=== PATIENT | male | born 1990 ===

== ENCOUNTER 2024-06-20 12:15 | Outpatient (REF) | payer MEDICAID, SELFPAY ==
--- OUTSIDE RECORDS SUMMARY | 2024-06-21 16:05 | XMS_ITS | Encounter Summary ---
Author Organization [employer] Address [address] [place] [address] 7 [place] [address] Care Team Providers Care Sales Contractor Name Role Phone Unavailable Primary Care Provider Unavailabl e Encounter Details Date Type Department Care Team (Late st Contact Info) Description 06/20/2024 6:00 PM EST Office Visit [facility] [address] [place] [address] [phone] Jose Flores MD [address] [place], [place] [phone] Chlamydia contact (Primary Dx); Dysuria Social History Tobacco Use Types Packs/Day Years Used Date Smoking Tobacco: Former Cigarettes Passive Smoke Exposure: Never Smokeless Tobacco: Never Tobacco Cessation:Counseling Given: Not Answered Sex and Gender Information Value Date Recorded Sex Assigned at Male 01/31/2023 1:44 PM EDT Legal Sex Male 2:37 PM EST Gender Identity Male 01/31/2023 1:44 PM EDT Sexual Orientation Straight 01/31/2023 1: 44 PM EDT documented as of this encounter Last Filed Vital Signs Vital Sign Reading Time Taken Comments Blood Pressure 125/71 06/20/2024 5:46 PM EST Pulse 54 06/20/2024 5:46 PM EST Temperature 36.2 ??C (97.2 ??F) 06/20/2024 5:46 PM ES T Respiratory Rate 20 06/20/2024 5:46 PM EST Oxygen Saturation 98% 06/20/2024 5:46 PM EST Inhaled Oxygen Concentration - - Weight 80.6 kg (177 lb 12.8 oz) 06/20/2024 5:46 PM EST Height 174 cm (5' 8.5 ) 06/20/2024 5:46 PM EST Body Mass Index 26.64 06/20/2024 5:46 PM EST documented in this encounter Progress Notes * Jose Flores MD - 06/20/2024 6:00 PM EST Subjective Patient ID: Anselmo Massey is a 33 y.o. male. 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 Anselmo had had 1 month h/o mild burning on urination, no urethral discharge. No fever, testicular pain or swelling. Lives with girlfriend. 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 Quit smoking 3 years ago. The following portions of the chart were reviewed this encounter and updated as appropriate: Tobacco Allergies Meds Problems Med Hx Surg Hx Fam Hx Review of Systems Constitutional: Negative for fever. Respiratory: Negative for shortness of breath. Cardiovascular: Negative for chest pain. Gastrointestinal: Negative for abdominal pain. Genitourinary: Positive for dysuria. Negative for penile discharge, scrotal swelling and testicularpain. Skin: Negative for rash. Neurological: Negative for headaches. Objective Physical Exam Vitals and nursing note reviewed. Constitutional: Appearance: Normal appearance. HENT: Head: Normocephalic and atraumatic. Nose: Nose normal. Eyes: Conjunctiva/sclera: Conjunctivae normal. Pupils: Pupils are equal, round, and reactive to light. Pulmonary: Effort: Pulmonary effort is normal. Skin: General: Skin is warm and dry. Neurological: Mental Status: He is alert. Gait: Gait is intact. Psychiatric: Mood and Affect: Mood and affect normal. Behavior: Behavior normal. Procedures Assessment/Plan Diagnoses and all orders for this visit: Chlamydia contact Urine CT/GC and trichomonas tests pending. Prescribed doxycycline. STI blood tests ordered. Will call pt with results. Advised to avoid sexual activity until finishing doxycycline. Repeat urine GC/CT test ordered to be done in 3 months to test for reinfection. Rtc if not improving. [facility] PCP mi't requested. - Trichomonas vaginalis RNA, Qualitative, TMA, Males - Chlamydia/N. Gonorrhoeae RNA, TMA, Urogenitial; Future - Hepatitis B Core Antibody, Total; Future - Hepatitis B Surface Antibody, Qualitative; Future - Hepatitis B surface antigen, EIA; Future - Hepatitis C Antibody with Reflex to HCV, RNA, Quantitative, Real-Time PCR; Future - HIV-1/2 Antigen and Antibodies, Fourth Generation, with Reflexes; Future - RPR (Monitor) with Reflex to Titer; Future - Chlamydia/N. Gonorrhoeae RNA, TMA, Urogenitial Dysuria - POCT urinalysis dipstick manually resulted - Culture, Urine, Routine Other orders - doxycycline (Vibramycin) 100 MG capsule; Take 1 capsule (100 mg) by mouth 2 times daily for 7 days. Take with at least 8 ounces (large glass) of water, do not lie down for 30 minutes after documented in this encounter Plan of Treatment Scheduled Orders Name Type Priority Associated Diagnoses Orde r Schedule Culture, Urine, Routine Microbiology Routine Dysuria Ordered: 06/20/2024 Trichomonas vaginalis RNA, Qualitative, TMA, Males Lab Routine Chlamydia contact Ordered: 06/20/2024 Chlamydia/N. Gonorrhoeae RNA, TMA, Urogenitial Microbiology Routine Chlamydia contact Expected: 06/20/2024 (Approximate), Expires: 06/20/2025 Hepatitis B Core Antibody, Total Lab Routine Chlamydia contact Expected: 06/20/2024 (Approximate), Expires: 06/20/2025 Hepatitis B Surface Antibody, Qualitative Lab Routine Chlamydia contact Expected: 06/20/2024 (Approximate), Expires: 06/20/2025 Hepatitis B surface antigen, EIA Lab Routine Chlamydia contact Expected: 06/20/2024 (Approximate), Expires: 06/20/2025 Hepatitis C Antibody with Reflex to HCV, RNA, Quantitative, Real-Time PCR Lab Routine Chlamydia contact Expected: 06/20/2024 (Approximate), Expires: 06/20/2025 HIV-1/2 Antigen and Antibodies, Fourth Generation, with Reflexes Lab Routine Chlamydia contact Expected: 06/20/2024 (Approximate), Expires: 06/20/2025 RPR (Monitor) with Reflex to??Titer Lab Routine Chlamydia contact Expected: 06/20/2024 (Approximate), Expires: 06/20/2025 Chlamydia/N. Gonorrhoeae RNA, TMA, Urogenitial Microbiology Routine Chlamydia contact Ordered: 06/20/2024 documented as of this encounter Procedures Procedure Name Priority Date/Time Associated Diagnosis Comments POCT URINALYSIS DIPSTICK Routine 06/20/2024 6:04 PM EST Dysuria documented in this encounter Results * POCT urinalysis dipstick manually resulted (06/20/2024 6:04 PM EST) Color, UA Yellow Clarity, UA Clear Glucose, UA Negative Bilirubin, UA Negative Ketones, UA Negative Spec Grav, UA 1.020 Blood, UA Negative Negative, None Detected pH, UA 7.0 Protein, UA Trace Urobilinogen, UA 0.2 Leukocytes, UA Negative Negative, Rare, Trace Nitrite, UA Negative Negative, None Detected Appearance, UA clear QC Media Lot # [id number] Lot# Expiration Date Urine 06/20/2024 6:04 PM EST Jose Flores MD POINT OF CARE TEST ENTER/EDIT OR DERABLES Final Result documented in this encounter Visit Diagnoses Diagnosis Chlamydia contact- Primary Contact with or exposure to venereal diseases Dysuria documented in this encounter
--- OUTSIDE RECORDS SUMMARY | 2024-06-21 16:05 | XMS_ITS | Encounter Summary ---
Author Organization [employer] Address [address] [place] [address] [place] [address] Care Team Providers Care Senior Salesforce Developer Name Role Phone Unavailable Primary Care Provider Unavailabl e Reason for Visit * Reason Onset Date Comments New patient appt. 06/21/2024 Encounter Details Date Type Department Care Team ([facility] st Contact Info) Description 06/21/2024 Telephone [facility] [address] [place], [place] [phone] Ronan Dietrich MD [address] [place], [place] [phone] New patient appt. Social History Tobacco Use Types Packs/Day Years Used Date Smoking Tobacco: Former Cigarettes Passive Smoke Exposure: Never Smokeless Tobacco: Never Sex and Gender Information Value Date Recorded Sex Assigned at Male 01/31/2023 1:44 PM EDT Legal Sex Male 2:37 PM EST Gender Identity Male 01/31/2023 1:44 PM EDT Sexual Orientation Straight 01/31/2023 1: 44 PM EDT documented as of this encounter Miscellaneous Notes * Telephone Encounter - Sindy Scruggs - 06/21/2024 10:33 AM EST Outgoing call to pt to book [facility] appt. No answer. Unable to leave message as no VM has been set up. * Telephone Encounter - Sindy Scruggs - 06/21/2024 10:33 AM EST ----- Message from Jose Flores MD sent at 06/20/2024 6:35 PM EST ----- Please schedule [facility] PCP appt. Thanks. documented in this encounter Plan of Treatment Not on file documented as of this encounter Visit Diagnoses Not on filedocumented in this encounter
--- OUTSIDE RECORDS SUMMARY | 2024-06-21 16:05 | XMS_ITS | Clinical Summary ---
Author Organization [employer] Address [address] [place] [address] [address] [place] [address] Care Team Providers Care Log Washer Name Role Phone Unavailable Primary Care Provider Unavailabl e Allergies No known active allergies Medications doxycycline (Vibramycin) 100 MG capsule Take 1 capsule (100 mg) by mouth 2 times daily for 7 days. Take with at least 8 ounces (large glass) of water, do not lie down for 30 minutes after 14 capsule 06/20/2024 Active Active Problems No known active problems Encounters Date Type Department Care Team Description 06/21/2024 Telephone [facility] [address] [place], [place] [phone] Ronan Dietrich MD New patient appt. 06/20/2024 6:00 PM EST Office Visit [facility] [address] [place], [place] [phone] Jose Flores MD Chlamydia contact (Primary Dx); Dysuria from Last 3 Months Immunizations Name Administration Dates Next Due Tdap 01/31/2023 Social History Tobacco Use Types Packs/Day Years Used Date Smoking Tobacco: Former Cigarettes Passive Smoke Exposure: Never Smokeless Tobacco: Never Tobacco Cessation:Counseling Given: Not Answered Sex and Gender Information Value Date Recorded Sex Assigned at Male 01/31/2023 1:44 PM EDT Legal Sex Male 2:37 PM EST Gender Identity Male 01/31/2023 1:44 PM EDT Sexual Orientation Straight 01/31/2023 1: 44 PM EDT Last Filed Vital Signs Vital Sign Reading [...] Mass Index 26.64 06/20/2024 5:46 PM EST Plan of Treatment Health Maintenance Due Date Last Done Comments Depression Screening 1990 HIV Screening 1990 SDOH Screening 1990 Alcohol/Substance Use Screening 2002 Family Planning (PISQ) 2005 Hepatitis C Screening 2008 Hepatitis B Vaccines (1 of 3 - 19+ 3-dose series) 2009 COVID-19 Vaccine (2023-2 5 season) 2024 Influenza Vaccine (#1) 2024 Tobacco Screening 06/20/2025 06/20/2024 DTaP/Tdap/Td Vaccines (2 - T d or Tdap) 01/31/2033 01/31/2023 Zoster Vaccines (1 of 2) 2040 RSV Patients and Pa tients Aged 60 years or older (1 - 1-dose 75+ series) 2065 HIB Vaccines Aged Out No longer eligi ble based on patient's age to complete this topic HPV Vaccines Aged Out No longer eligi ble based on patient's age to complete this topic Hepatitis A Vaccines Aged Out No long er eligible based on patient's age to complete this topic IPV Vaccines Aged Out No longer eligi ble based on patient's age to complete this topic Meningococcal Vaccine Aged Out No zhang marleni eligible based on patient's age to complete this topic Pneumococcal Vaccine: Pediat rics (0 to 5 Years) and At-Risk Patients (6 to 49) Years) Aged Out No longer elig ible based on patient's age to complete this topic RSV under 20 months Aged Out No longe r eligible based on patient's age to complete this topic Rotavirus Vaccines Aged Out No longer eligible based on patient's age to complete this topic Procedures Procedure Name Priority Date/Time Associated Diagnosis Comments POCT URINALYSIS DIPSTICK Routine 06/20/2024 6:04 PM EST Dysuria from Last 3 Months Results * POCT urinalysis dipstick manually resulted [...] Media Lot # [id number] Lot# Expiration Date ,126 Urine 06/20/2024 6:04 PM EST Jose Flores MD POINT OF CARE TEST ENTER/EDIT OR DERABLES Final Result from Last 3 Months Insurance LIMITED HSN FULL
[2024-06-22 12:58] LABS: CT PCR NOT DETECTED (Not Detect.); NG PCR NOT DETECTED (Not Detect.)
[2024-06-23 18:59] LABS: Trichomonas vag. RNA Ur Male NOT DETECTED (NOT DETECTED)
== END 2024-06-20 12:16 | disposition home or self-care (01) ==
LOC: HO.HHCLNP 12:15
PROVIDERS: Visit Provider Emergency Medicine
DX: R30.0 Dysuria (principal); Z20.2 Contact with and (suspected) exposure to infections with a predominantly sexual mode of transmission
CPT/HCPCS: 36415; 87086; 87491; 87591; 87661